=== PATIENT | male | born 1990 | race Caucasian/White ===

== ENCOUNTER 2023-07-12 09:30 | Emergency (ER) | payer SELFPAY ==
--- NOTE | 2023-07-12 09:33 | ECG_ITS ---
SEE SCANNED COPY FOR CONFIRMED REPORT. MTDD
[2023-07-12 09:35] VITALS: BP 154/112; PULSE 96; RESP 18; TEMP 37.1; O2SAT 98
[2023-07-12 09:40] VITALS: O2SAT 98
[2023-07-12 09:42] VITALS: PULSE 92
--- NOTE | 2023-07-12 09:45 | PC.NURSE ---
Pt refusing Covid/flu/RSV swab stating The swab is from them. I don't want it. Pt educated on why swab is needed. Pt still refusing. EDP made aware
--- NOTE | 2023-07-12 09:51 | ED.GENADULT ---
HPI - General Adult General Chief complaint: Shortness of Breath/Dyspnea Stated complaint: sob, blurred vision Time Seen by Provider: 07/12/23 09:34 History of Present Illness HPI narrative: 32-year-old male presenting to the emergency department for evaluation for worsening shortness of breath. Patient states he recently moved back from [place]. Related Data Allergies Allergy/AdvReac Type Severity Reaction Status Date / Time No Known Allergies Allergy Mild Verified 07/12/23 09:42 Review of Systems Review of Systems: All systems reviewed & are unremarkable except as noted in HPI and below Exam Narrative: APPEARANCE: Well appearing, no pain, no distress, well-nourished. HEAD: normocephalic, atraumatic. EYES: PERRLA/EOMI, conjunctivae clear. NOSE: Normal no drainage RESPIRATORY: Airway patent, respirations nonlabored. Clear to auscultation bilaterally, no rales, rhonchi, wheezing. CARDIOVASCULAR: Regular rate and rhythm without murmurs rubs or gallops. ABDOMINAL: Soft, nontender, nondistended, normal bowel sounds MUSCULOSKELETAL: Moves all extremities. Strength/ROM intact, No edema, No calf tenderness. NEURO: Alert. Cranial nerves II through XII intact. SKIN: Warm, dry. Normal Color Course Course Emergency Course: Patient signed out against medical advice prior to his labs being resulted. Vital Signs Vital signs: Vital Signs Temperature 98.7 F 07/12/23 09:35 Pulse Rate 96 07/12/23 09:35 Respiratory Rate 18 07/12/23 09:35 Blood Pressure 154/112 H 07/12/23 09:35 Pulse Oximetry 98 07/12/23 09:35 Oxygen Delivery Room Air 07/12/23 09:35 Temperature 98.7 F 07/12/23 09:35 Pulse Rate 92 07/12/23 09:42 Respiratory Rate 18 07/12/23 09:35 Blood Pressure 154/112 H 07/12/23 09:35 Pulse Oximetry 98 07/12/23 09:40 Oxygen Delivery Room Air 07/12/23 09:40 Medical Decision Making [facility] Narrative Medical decision making narrative: Patient initially declined the COVID, RSV, influenza swab and ultimately decided to leave against medical advice prior to completing his medical workup Vital Signs Vital Signs: Vital Signs Temperature 98.7 F 07/12/23 09:35 Pulse Rate 96 07/12/23 09:35 Respiratory Rate 18 07/12/23 09:35 Blood Pressure 154/112 H 07/12/23 09:35 Pulse Oximetry 98 07/12/23 09:35 Oxygen Delivery Room Air 07/12/23 09:35 Temperature 98.7 F 07/12/23 09:35 Pulse Rate 92 07/12/23 09:42 Respiratory Rate 18 07/12/23 09:35 Blood Pressure 154/112 H 07/12/23 09:35 Pulse Oximetry 98 07/12/23 09:40 Oxygen Delivery Room Air 07/12/23 09:40 Lab Data 07/12/23 09:42 07/12/23 09:42 Labs: Lab Results 07/12/23 07/12/23 Range/Units 09:42 09:44 WBC 11.4 H (4.5-10.0) K/mm3 RBC 4.63 (4.6-6.20) M/mm3 Hgb 14.3 (14.0-18.0) g/dL Hct 40.9 L (42.0-52.0) % MCV 88.3 (80-100) fl MCH 30.9 (26-34) pg MCHC 35.0 (32-36) g/dl RDW 12.7 (11.5-14.5) % Plt Count 288 (150-375) k/mm3 MPV 10.1 (7.4-10.4) fl Immature Gran % (Auto) 0.3 (0-0.5) % Neut % (Auto) 70.0 (45.5-73.1) % Lymph % (Auto) 19.4 (18.3-44.2) % Parmer % (Auto) 9.5 H (2.6-8.5) % Eos % (Auto) 0.4 (0-4.4) % Baso % (Auto) 0.4 (0.2-1.2) % Lymph # (Auto) 2.21 (0.9-3.2) K/mm3 Parmer # (Auto) 1.1 H (0.1-0.6) K/mm3 Eos # (Auto) 0.1 (0-0.3) K/mm3 Baso # (Auto) 0.0 (0.0-0.1) K/mm3 Abs Immat Gran (auto) 0.03 (0.00-0.031) K/mm3 Absolute Neuts (auto) 8.0 H (1.3-6.7) K/mm3 Absolute Nucleated RBC 0.000 (0.0-0.012) K/mm3 Nucleated RBC % 0.0 (0.0-0.2) % D-Dimer < 0.27 (<0.48) ug/mL Sodium 138 (137-145) mmol/L Potassium 3.4 (3.4-5.0) mmol/L Chloride 99 (98-107) mmol/L Carbon Dioxide 26 (22-30) mmol/L Anion Gap 13 H (4-12) mmol/L BUN 15 (9-20) mg/dL Creatinine 0.80 (0.7-1.3) mg/dL Estim Creat Clear Calc 154 ml/min Estimated GFR > 60 (59 - ) Glucos
[2023-07-12 09:54] LABS: Basophils Percent Auto 0.4 % (0.2-1.2); Eosinophils Absolute Auto 0.1 K/mm3 (0-0.3); Eosinophils Percent Auto 0.4 % (0-4.4); Hematocrit 40.9 % (42.0-52.0); Hemoglobin 14.3 g/dL (14.0-18.0); Immature Granulocyte Absolute 0.03 K/mm3 (0.00-0.031); Immature Granulocyte Percent A 0.3 % (0-0.5); Lymphocytes Absolute Auto 2.21 K/mm3 (0.9-3.2); Lymphocytes Percent Auto 19.4 % (18.3-44.2); Mean Corpuscular Hemoglobin 30.9 pg (26-34); Mean Corpuscular Volume 88.3 fl (80-100); Mean Platelet Volume 10.1 fl (7.4-10.4); Monocytes Absolute Auto 1.1 K/mm3 (0.1-0.6); Monocytes Percent Auto 9.5 % (2.6-8.5); Platelet Count Result 288 k/mm3 (150-375); Red Blood Count 4.63 M/mm3 (4.6-6.20); Red Cell Distribution Width 12.7 % (11.5-14.5); White Blood Count 11.4 K/mm3 (4.5-10.0)
--- NOTE | 2023-07-12 09:56 | PC.NURSE ---
Pt requesting to leave hospital. Pt stating I'm not going to get swabbed. That comes from [place], you're going to give me covid This RN explained to pt that the swab tests for covid, flu, and RSV and that we are not infecting his with COVID. This RN went over AMA form with pt who then stated that he needed to make a phone call first and stated I'm not paying for this, so I'm not signing that. This RN explained the risks of leaving AMA again with the pt and pt still refused to sign. Pt instructed to go to nearest ED for worsening condition. Pt ambulated out ED using steady gait. NAD noted.
[2023-07-12 10:05] LABS: Alanine Aminotransferase 77 U/L (6-50); Alkaline Phosphatase 92 U/L (38-126); Anion Gap 13 mmol/L (4-12); Aspartate Amino Transferase 75 U/L (17-59); Bilirubin,Total 1.5 mg/dL (0.2-1.3); Blood Urea Nitrogen 15 mg/dL (9-20); Carbon Dioxide 26 mmol/L (22-30); Chloride 99 mmol/L (98-107); Estimated CRCL calculation 154 ml/min; Estimated Glomerular Filt Rate > 60; Glucose 140 mg/dL (65-110); Potassium 3.4 mmol/L (3.4-5.0); Sodium 138 mmol/L (137-145)
[2023-07-12 10:20] LABS: NT Pro B Type Natriuretic Pept 70 pg/mL (19.9-100)
[2023-07-12 10:22] LABS: D Dimer < 0.27 ug/mL (<0.48)
== END 2023-07-12 10:05 | disposition left against medical advice (07) ==
LOC: ANHED 09:54
PROVIDERS: Emergency Provider Emergency Medicine
DX: R06.02 Shortness of breath (principal)
CPT/HCPCS: 36415; 80053; 83880; 85025; 85380; 93005; 99284

== ENCOUNTER 2023-07-12 20:53 | Emergency (ER) | payer SELFPAY ==
[2023-07-12 20:54] VITALS: PULSE 108; RESP 20; O2SAT 99
--- NOTE | 2023-07-12 21:01 | ED_ITS ---
HPI - General Adult General Chief complaint: Overdose Stated complaint: OVERDOSE/FOUND UNRESPONSIVE History of Present Illness HPI narrative: This is a 32-year-old male with history opiate abuse presenting for suspected overdose. Patient was found in his aunt's driveway in the car unresponsive. Police were called who gave him Narcan and preferred compressions. EMS arrived and then give him IM Narcan with return to normal mental status. A&O x3. Patient did not want to come to the hospital at that time. Patient does not want to be treated here. He is denying use of drugs or alcohol. No complaints at this time. Related Data Allergies Allergy/AdvReac Type Severity Reaction Status Date / Time No Known Allergies Allergy Mild Verified 07/12/23 09:42 [facility] Past Medical History Medical History (Updated 07/12/23 @ 21:07 by Nicho Lezama MD) Opiate abuse, episodic Exam Narrative: APPEARANCE: No apparent distress. A&O x4 Head: atraumatic. EYES: EOMI, NOSE: Atraumatic NECK: Trachea midline RESPIRATORY: No increased rate of breathing, CTAB CARDIOVASCULAR: RRR, ABDOMINAL: Non-distended MUSCULOSKELETAl: No obvious deformities NEURO: Alert. Moving 4/4 extremities SKIN:: Warm, dry. Normal color PSYCHIATRIC: Normal affect Medical Decision Making MDM Narrative Medical decision making narrative: -Course: 32-year-old male presenting ED after a Narcan revival. Patient is denying drug use. He is refusing any and all workup. I explained that him being in a coma was very concerning especially if he was not using drugs and we should order lab work and imaging to ensure there is nothing else going on. The patient refused. I explained at length he could leave the emergency department and relapse into a coma. His condition could worsen up to and including and he verbalizes understanding. Patient has capacity to make his own decisions. Patient says he does not want to stay in the ED his he cant even fucking smoke weed here.? Patient left AMA. Patient was given a prescription for Narcan. -DDX includes but is not limited to:Opiate overdose. ETOH abuse. Substance use -Co-morbidities complicating care: hx of drug abuse. Discharge Plan Discharge Clinical Impression: Drug overdose Patient Disposition: Left Against Medical Advice Condition: Serious Instructions: Adult Overdose (ED) Additional Instructions: Please make sure you have Narcan with you at all times. Please refrain from opiate a abuse. Please return if her condition is to worsen Prescriptions: New naloxone [Narcan] 4 mg/actuation spray,non-aerosol 4 mg intranasal Q2M PRN (Reason: opioid overdose) Qty: 2 0RF Rx Instructions: spray 1 dose into ONE nostril; alternate nostrils w each dose until help arrives Follow-up/Referrals: PHYSICIAN,DIE INSPECTOR [Primary Care Provider] -
--- NOTE | 2023-07-12 21:07 | PC.NURSE ---
ERP at bedside and went into detail about pt presentation and concern for relapse of condition, including coma and . Pt states he understands and still wants to leave AMA. ERP states he will give pt a narcan rx despite pt adamantly reporting he does not do opiates.
== END 2023-07-12 21:27 | disposition left against medical advice (07) ==
PROVIDERS: Emergency Provider Emergency Medicine
DX: T50.901A Poisoning by unspecified drugs, medicaments and biological substances, accidental (unintentional), initial encounter (principal)
CPT/HCPCS: 99283